=== PATIENT | female | born 1975 | race Two or more races ===

== ENCOUNTER → 2024-08-17 | Outpatient (CLI) | payer BC, SELFPAY ==
[2024-08-17 11:05] LABS: Collection Type, Urine Clean Catch
[2024-08-17 11:38] LABS: Basophils % (Auto) 1 % (0-2.5); Eosinophils # (Auto) 0.1 Thou/mm3 (0.0-0.5); Eosinophils % (Auto) 1 % (0-10); Hemoglobin 14.2 g/dL (12.0-16.0); Immature Granulocytes % (Auto) 0 % (0-0); Lymphocytes # (Auto) 1.5 Thou/mm3 (1.0-4.8); Lymphocytes % (Auto) 35 % (10-50); Mean Corpuscular HGB Conc 33.8 g/dl (31.0-37.0); Mean Corpuscular Volume 86 fL (80-100); Monocytes # (Auto) 0.3 Thou/mm3 (0.0-0.8); Monocytes % (Auto) 7 % (0-12); Neutrophils # (Auto) 2.4 Thou/mm3 (1.8-7.7); Neutrophils % (Auto) 56 % (37-80); Nucleated Red Blood Cell % 0 /100 WBC (0); Platelet Count 303 Thou/mm3 (140-440); Red Blood Count 4.89 Miln/mm3 (4.00-5.20); White Blood Count 4.2 Thou/mm3 (3.6-11.0)
[2024-08-17 11:40] LABS: Bacteria,Urine Rare; Bilirubin,Urine Negative (Negative); Blood,Urine Negative (Negative); Clarity,Urine Clear (Clear/Hazy); Color,Urine Lt-Yellow (Lt Yel-Yel); Glucose, Urine Negative (Negative); Ketones,Urine Negative (Negative); Leukocyte Esterase,Urine Positive (Negative); Nitrite,Urine Positive (Negative); Protein,Urine Negative (Neg - Trace); RBC,Urine 4 /hpf (0-3); Specific Gravity,Urine 1.013 (1.001-1.035); Squamous Epithelial Cell,Urine 2 /hpf (0-5); Urobilinogen,Urine Negative mg/dL (0.0-1.0); WBC,Urine 5 /hpf (0-5)
[2024-08-17 11:44] LABS: Culture Indicated,Urine Yes
[2024-08-17 11:55] LABS: Alanine Aminotransferase 50 U/L (10-49); Albumin, Serum 4.7 gm/dL (3.5-5.0); Albumin/Globulin Ratio 1.7 (1.2-2.2); Alkaline Phosphatase 141 U/L (46-116); Anion Gap 8 (7-16); Aspartate Amino Transferase 30 U/L (0-34); BUN/Creatinine Ratio 14 Ratio (12-20); Bilirubin,Total 0.8 mg/dL (0.3-1.2); Blood Urea Nitrogen 10 mg/dL (9-23); Calcium 9.8 mg/dL (8.3-10.6); Calcium (Corrected) 9.8 mg/dL (8.5-10.1); Carbon Dioxide 28.3 mMol/L (20.0-31.0); Cardiac Risk Estimate 2.9 RATIO (3.7-5.6); Chloride 107 mMol/L (98-107); Cholesterol 217 mg/dL (132-200); Creatinine (Component) 0.7 mg/dL (0.6-1.3); Globulin 2.7 gm/dL (2.3-3.5); Glucose 93 mg/dL (74-106); HDL Cholesterol 75 mg/dL (40-60); LDL Cholesterol,Calculated 121 mg/dL (0-130); Osmolality,Calculated 283 (275-295); Potassium 4.3 mMol/L (3.4-5.1); Sodium 143 mMol/L (136-145); Thyroid Stimulating Hormone 0.87 uIU/mL (0.55-4.78); Total Protein 7.4 gm/dL (5.7-8.2); Triglycerides 103 mg/dL (30-150); eGFR > 60 See Note
[2024-08-17 12:07] LABS: Vitamin B12 1088 pg/mL (211-911)
[2024-08-17 12:23] LABS: Vitamin D 25 Hydroxy Total 24.5 ng/mL (7.3-40.2)
[2024-08-23 07:27] LABS: Insulin* 5.4 uIU/mL (< OR = 18.4)
== END | disposition home or self-care (01) ==
LOC: COPL 10:34
PROVIDERS: PCP Family Medicine; Referring Provider Physician Assistant; Visit Provider Physician Assistant
DX: Z00.00 Encounter for general adult medical examination without abnormal findings (principal); E78.5 Hyperlipidemia, unspecified; E55.9 Vitamin D deficiency, unspecified
CPT/HCPCS: 36415; 80053; 80061; 81001; 82306; 82607; 83525; 84443; 85025; 87077; 87086; 87186

== ENCOUNTER 2024-11-29 20:45 | Emergency (ER) | payer BC, SELFPAY ==
[2024-11-29 20:45] VITALS: BMI 22.6
[2024-11-29 21:56] VITALS: BP 143/82; PULSE 119; RESP 18; TEMP 37.8; O2SAT 97
--- NOTE | 2024-11-29 22:56 | XR_ITS ---
Examination: PA lateral chest 2 views TECHNIQUE: Upright PA and lateral chest 2 views Date and time: November 29, 2024 11:22 PM INDICATIONS: Fever shortness of breath beginning 2 days ago. FINDINGS: Normal heart size Lungs are clear. The osseous structures are intact IMPRESSION: No active disease
[2024-11-29 23:04] LABS: Basophils # (Auto) 0.0 Thou/mm3 (0.0-0.2); Basophils % (Auto) 0 % (0-2.5); Eosinophils # (Auto) 0.0 Thou/mm3 (0.0-0.5); Eosinophils % (Auto) 0 % (0-10); Hematocrit 38.2 % (36.0-46.0); Hemoglobin 13.7 g/dL (12.0-16.0); Immature Granulocytes Auto 0.03 Thou/mm3 (0.00-0.00); Lactate (Lactic Acid) 1.0 mMol/L (0.4-2.0); Lymphocytes # (Auto) 0.9 Thou/mm3 (1.0-4.8); Lymphocytes % (Auto) 9 % (10-50); Mean Corpuscular HGB Conc 35.9 g/dl (31.0-37.0); Mean Corpuscular Hemoglobin 30.8 pg (25.0-35.0); Mean Corpuscular Volume 86 fL (80-100); Monocytes # (Auto) 0.8 Thou/mm3 (0.0-0.8); Monocytes % (Auto) 7 % (0-12); Neutrophils # (Auto) 8.7 Thou/mm3 (1.8-7.7); Neutrophils % (Auto) 84 % (37-80); Nucleated Red Blood Cell # 0.00 Thou/mm3 (0.00-0.00); Nucleated Red Blood Cell % 0 /100 WBC (0); Platelet Count 191 Thou/mm3 (140-440); RDW Standard Deviation 38.5 fL (36.4-46.3); Red Blood Count 4.45 Miln/mm3 (4.00-5.20); White Blood Count 10.4 Thou/mm3 (3.6-11.0)
[2024-11-29] MEDS: NAPROXEN 250 MG TABLET 500 MG PO (23:04)
[2024-11-29 23:05] LABS: Collection Type, Urine Clean Catch
--- NOTE | 2024-11-29 23:22 | EDNOTE_ITS ---
Nausea/Vomit./Diarrhea-RME/HPI General Chief complaint: Fever Stated complaint: FEVER Time Seen by Provider: 11/29/24 22:38 Arrival date/time: 11/29/24 20:45 49F with no significant PMH presents to ED with several days of fevers/chills and some non-bloody diarrhea. Possibly chest pain vs generalized body pain. P atient denies ab pain, N/V, and dysuria. Limitations: no limitations Related Data Previous Rx's ?Medication ?Instructions ?Recorded famotidine 20 mg tablet 20 mg PO QDAY #30 tabs 03/27 cefuroxime axetil 500 mg tablet 500 mg PO BID 7 days # 14 tabs 11/30/24 Allergies Allergy/AdvReac Type Severity Reaction Status Date / Time NKA* Allergy Uncoded 03/27/21 11:09 Review of Systems Review of Systems Systems Reviewed: All systems reviewed, normal except as documented Constitutional Constitutional: Reports system reviewed and no additional complaints, except as documented, Reports as per HPI, Reports body ache(s), Reports chills, Reports fever(s) and Denies headache(s) ENT Ears, Nose, Mouth, and Throat: Denies disequilibrium and Denies headache(s) Cardiovascular Cardiovascular: Reports system reviewed and no additional complaints, except as documented, Denies chest pain and Denies dyspnea Respiratory Respiratory: Reports system reviewed and no additional complaints, except as documented, Denies cough and Denies dyspnea Gastrointestinal Gastrointestinal: Reports system reviewed and no additional complaints, except as documented, Reports as per HPI, Denies abdominal pain, Reports diarrhea, Denies nausea and Denies vomiting Neurologic Neurologic: Reports system reviewed and no additional complaints, except as documented, Denies confusion, Denies disequilibrium and Denies headache(s) Psychiatric Psychiatric: Denies confusion Past Medical History Social History SMOKING STATUS: Never smoker ED Exam General Limitations: Present no limitations General appearance: Present alert and in no apparent distress Head Head exam: Present atraumatic Eye Eye exam: Present normal appearance, PERRL and EOMI ENT ENT exam: Present normal exam, normal oropharynx and mucous membranes moist Neck Neck exam: Present normal inspection, full ROM and trachea midline Chest Chest inspection: Present normal inspection and symmetric chest wall rise Respiratory Respiratory exam: Present normal lung sounds bilaterally Cardiovascular Cardiovascular exam: Present regular rate, normal rhythm and normal heart sounds Abdominal Exam Abdominal exam: Present soft and normal bowel sounds Extremities Exam Extremities exam: Present normal inspection and full ROM Back Exam Back exam: Present normal inspection and full ROM Neurological Exam Neurological exam: Present alert, oriented X3 and CN II-XII intact Psychiatric Psychiatric exam: Present normal affect and normal mood Skin Skin exam: Present warm, dry, intact and normal color Course Quality Measures none Orders Category Date Time Status Bedside COVID-19 Antigen Test NOW Care 11/29/24 22:06 Completed Bedside Influenza A&B Antigen Test NOW Care 11/29/24 22:06 Completed XR chest 2V Stat Exams 11/29/24 22:56 Completed CBC Stat Lab 11/29/24 22:51 Completed CMP [Comprehensive Metabolic Panel] Stat Lab 11/29/24 22:51 Completed Lactate (Lactic Acid) Stat Lab 11/29/24 22:51 Completed Procalcitonin Stat Lab 11/29/24 22:51 Completed Urinalysis, C/S if Indicated Stat Lab 11/29/24 22:55 Completed Urine Culture Stat Lab 11/29/24 22:55 Received Naproxen [Naprosyn] Med 11/29/24 22:38 Discontinued 500 mg PO X1 ONE cefuroxime axetiL [cefUROXime axetil] Med 11/30/24 00:15 Discontinued 500 mg PO X1 ONE Vital Signs Vital signs: Vital Signs Temperature 100.0 F 11/29/24 21:56 Pulse Rate 119 H 11/29/24 21:56 Respiratory Rate 18 11/29/24 21:56 Blood Pressure 143/82 H 11/29/24 21:56 Pulse Oximetry (%) 97 11/29/24 21:56 Oxygen Delivery Method Room Air 11/29/24 21:56 O2 at 97% on RA and WNLs Nausea/Vomiting/Diarrhea MDM Narrative MDM Narrative:: 49F with no significant PMH presents to ED with several days of fevers/chills and some non-bloody diarrhea. Possibly chest pain vs generalized body pain. Patient denies ab pain, N/V, and dysuria. Physical exam reveals clear oropharynx and lungs. Normal WOB. Patient is mildly febrile, but does not appear toxic. Swabs neg. CXR normal. No leukocytosis. Procal minimally elevated, but lactate normal. CMP cholestatic pattern, but patient denies ab pain. Also, no RUQ/epigas tric tenderness. Patient states she has some pelvic pain, though. This suggests the WBCs seen in UA is causing the symptoms, despite no dysuria. Will treat. Patient data External records reviewed:: [facility] previous records Clinical information provided by:: patient Social determinants that could affect healthcare access:: none Patient has the following chronic illnesses:: none How is presenting disease/condition affected by chronic disease/condition?: no chronic disease Evaluation data The following diagnostics were reviewed and interpreted by me:: lab results and radiology exam(s) Lab and/or radiology exams considered but not ordered:: ordered Interpretation Summary: above Medications / Prescriptions Medications / Prescriptions considered but not ordered:: ordered Medication administrations:: Medication Administration History Discontinued Medications Cefuroxime Axetil (Cefuroxime Axetil 250 Mg Tablet) 500 mg PO X1 ONE Stop: 11/30/24 00:16 Last Admin: 11/30/24 00:23 Dose: 500 mg Documented By: GM Naproxen (Naproxen 250 Mg Tablet) 500 mg PO X1 ONE Stop: 11/29/24 22:39 Last Admin: 11/29/24 23:04 Dose: 500 mg Documented By: GM above Consultations Consultation(s) initiated? (list below): No Diagnosis Nausea Differential Diagnosis: traveler's diarrhea, food poisoning, gastroenteritis, clostridium difficile infection, drug-induced nausea and vomiting, dehydration and other (UTI, biliary disease) Most likely diagnosis given after review of the tests above:: UTI Admission Indicated Admission indicated?: not indicated Admission Request Was there a request for admission?: No Disposition Plan Disposition Plan: Discharge Discharge Attestation Discharge Attestation: The patient and all family members were given an opportunity to ask questions and understood the discharge instructions. Discharge instructions specifically effects, indications for sooner follow up or return to the emergency department, and the expected course of current diagnosis. Patient condition: Stable Discharge Plan Plan Patient Disposition: HOME (Self Care) Discharge Disposition comment: Stable Prescriptions/Referrals Prescriptions/Med Rec: New cefuroxime axetil 500 mg tablet 500 mg PO BID 7 Days Qty: 14 0RF No Action famotidine 20 mg tablet 20 mg PO QDAY Qty: 30 0RF Referrals: Dona Lucas PA-C [Primary Care Provider] - In 1 week Problem List Clinical Impression: UTI (urinary tract infection) Patient/Caregiver Discharge Instructions Education Materials: ED CYSTITIS Female Adult Additional Instructions: Please follow-up with PCP within 24-48 hours and return immediately if symptoms worsen. Ibuprofen/Tylenol can be used simultaneously for greater fever/pain control. Print Language: Chinese Stand Alone Forms: Patient Portal Info Letter PA/AUTO GARAGE ATTENDANT Supervising Physician GARRET/JEROME Supervising Physician: Dr. Sifuentes
[2024-11-29 23:32] LABS: Alanine Aminotransferase 98 U/L (10-49); Albumin, Serum 4.7 gm/dL (3.5-5.0); Albumin/Globulin Ratio 1.7 (1.2-2.2); Alkaline Phosphatase 188 U/L (46-116); Anion Gap 10 (7-16); Aspartate Amino Transferase 134 U/L (0-34); BUN/Creatinine Ratio 13 Ratio (12-20); Bilirubin,Total 1.6 mg/dL (0.3-1.2); Blood Urea Nitrogen 10 mg/dL (9-23); Calcium 9.8 mg/dL (8.3-10.6); Calcium (Corrected) 9.8 mg/dL (8.5-10.1); Carbon Dioxide 23.7 mMol/L (20.0-31.0); Chloride 102 mMol/L (98-107); Creatinine (Component) 0.8 mg/dL (0.6-1.3); Estimated Creatinine Clearance 77.9 mL/min (>60); Globulin 2.8 gm/dL (2.3-3.5); Glucose 147 mg/dL (74-106); Osmolality,Calculated 273 (275-295); Potassium 4.0 mMol/L (3.4-5.1); Procalcitonin 1.45 ng/ml (0.0-0.49); Sodium 136 mMol/L (136-145); Total Protein 7.5 gm/dL (5.7-8.2); eGFR > 60 See Note
[2024-11-29 23:35] LABS: Bacteria,Urine 3+; Bilirubin,Urine Negative (Negative); Blood,Urine 2+ (Negative); Clarity,Urine Turbid (Clear/Hazy); Color,Urine Yellow (Lt Yel-Yel); Glucose, Urine Negative (Negative); Ketones,Urine Negative (Negative); Leukocyte Esterase,Urine Positive (Negative); Nitrite,Urine Positive (Negative); PH,Urine 6.5 (5.0-7.0); Protein,Urine 1+ (Neg - Trace); RBC,Urine 8 /hpf (0-3); Specific Gravity,Urine 1.012 (1.001-1.035); Squamous Epithelial Cell,Urine 2 /hpf (0-5); Urobilinogen,Urine 2.0 mg/dL (0.0-1.0); WBC,Urine 49 /hpf (0-5)
[2024-11-29 23:36] LABS: Culture Indicated,Urine Yes
== END 2024-11-30 00:48 | disposition home or self-care (01) ==
PROVIDERS: Physician Assistant; Emergency Provider Emergency Medicine; PCP Physician Assistant
DX: N39.0 Urinary tract infection, site not specified (principal); R50.9 Fever, unspecified; R06.02 Shortness of breath
CPT/HCPCS: 36415; 71046; 80053; 81001; 83605; 84145; 85025; 87077; 87086; 87186; 99283; A9270

== ENCOUNTER → 2024-12-10 | Outpatient (CLI) | payer BC, SELFPAY ==
[2024-12-10 14:40] LABS: Basophils # (Auto) 0.0 Thou/mm3 (0.0-0.2); Basophils % (Auto) 1 % (0-2.5); Eosinophils # (Auto) 0.1 Thou/mm3 (0.0-0.5); Eosinophils % (Auto) 2 % (0-10); Hematocrit 39.4 % (36.0-46.0); Hemoglobin 13.3 g/dL (12.0-16.0); Immature Granulocytes Auto 0.03 Thou/mm3 (0.00-0.00); Lymphocytes # (Auto) 2.4 Thou/mm3 (1.0-4.8); Lymphocytes % (Auto) 40 % (10-50); Mean Corpuscular HGB Conc 33.8 g/dl (31.0-37.0); Mean Corpuscular Hemoglobin 30.1 pg (25.0-35.0); Mean Corpuscular Volume 89 fL (80-100); Monocytes # (Auto) 0.3 Thou/mm3 (0.0-0.8); Monocytes % (Auto) 5 % (0-12); Neutrophils # (Auto) 3.2 Thou/mm3 (1.8-7.7); Neutrophils % (Auto) 52 % (37-80); Nucleated Red Blood Cell # 0.00 Thou/mm3 (0.00-0.00); Nucleated Red Blood Cell % 0 /100 WBC (0); Platelet Count 547 Thou/mm3 (140-440); RDW Standard Deviation 40.3 fL (36.4-46.3); Red Blood Count 4.42 Miln/mm3 (4.00-5.20); White Blood Count 6.1 Thou/mm3 (3.6-11.0)
[2024-12-10 14:47] LABS: Collection Type, Urine Clean Catch
[2024-12-10 14:58] LABS: Alanine Aminotransferase 56 U/L (10-49); Albumin, Serum 4.7 gm/dL (3.5-5.0); Albumin/Globulin Ratio 1.7 (1.2-2.2); Alkaline Phosphatase 205 U/L (46-116); Anion Gap 12 (7-16); Aspartate Amino Transferase 39 U/L (0-34); BUN/Creatinine Ratio 16 Ratio (12-20); Bilirubin,Total 0.5 mg/dL (0.3-1.2); Blood Urea Nitrogen 13 mg/dL (9-23); Calcium 9.6 mg/dL (8.3-10.6); Calcium (Corrected) 9.6 mg/dL (8.5-10.1); Carbon Dioxide 26.0 mMol/L (20.0-31.0); Chloride 104 mMol/L (98-107); Creatinine (Component) 0.8 mg/dL (0.6-1.3); Globulin 2.7 gm/dL (2.3-3.5); Glucose 94 mg/dL (74-106); Osmolality,Calculated 283 (275-295); Potassium 4.1 mMol/L (3.4-5.1); Sodium 142 mMol/L (136-145); Total Protein 7.4 gm/dL (5.7-8.2); eGFR > 60 See Note
[2024-12-10 15:24] LABS: Bilirubin,Urine Negative (Negative); Blood,Urine Negative (Negative); Clarity,Urine Clear (Clear/Hazy); Color,Urine Lt-Yellow (Lt Yel-Yel); Culture Indicated,Urine Not Indicated; Glucose, Urine Negative (Negative); Ketones,Urine Negative (Negative); Leukocyte Esterase,Urine Negative (Negative); Nitrite,Urine Negative (Negative); PH,Urine 6.0 (5.0-7.0); Protein,Urine Negative (Neg - Trace); RBC,Urine 1 /hpf (0-3); Specific Gravity,Urine 1.013 (1.001-1.035); Squamous Epithelial Cell,Urine 1 /hpf (0-5); Urobilinogen,Urine Negative mg/dL (0.0-1.0); WBC,Urine 5 /hpf (0-5)
== END | disposition home or self-care (01) ==
PROVIDERS: PCP Physician Assistant; Referring Provider Physician Assistant; Visit Provider Physician Assistant
DX: N39.0 Urinary tract infection, site not specified (principal)
CPT/HCPCS: 36415; 80053; 81001; 85025

== ENCOUNTER → 2024-12-21 | Outpatient (CLI) | payer BC, SELFPAY ==
--- NOTE | 2024-12-21 14:15 | XR_ITS ---
Examination: Screening digital mammography, bilateral Computer aided detection 3-D breast Tomosynthesis, bilateral Date and time of exam: December 21, 2024 1422 hours Compared to mammograms dating to April 18, 2015 Indication: Screening Technique: Nonmagnified MLO, CC views of the breasts to been obtained, reconstructed from 3-D Tomosynthesis images. R2 computer aided detection program utilized for evaluation of suspicious masses and/or abnormal calcifications. 3-D Tomosynthesis images obtained. Findings: The breasts are heterogeneously dense, which may obscure small masses 12 mm nodule upper outer right breast mid depth 14 mm nodule outer left breast CC view 9.4 cm from the nipple Impression: BI-RADS Category 0: Incomplete: Need additional imaging evaluation Recommend follow-up spot tomographic views 12 mm nodule upper outer right breast Recommend follow-up spot tomographic views upper outer quadrant left breast to assess focal asymmetry outer left breast on the current CC view Recommend bilateral breast sonography follow-up
== END | disposition home or self-care (01) ==
LOC: CDIM 15:45
PROVIDERS: Referring Provider Physician Assistant; Visit Provider Physician Assistant
DX: Z12.31 Encounter for screening mammogram for malignant neoplasm of breast (principal); N63.11 Unspecified lump in the right breast, upper outer quadrant; N64.89 Other specified disorders of breast
CPT/HCPCS: 77063; 77067

== ENCOUNTER → 2024-12-26 | Outpatient (CLI) | payer BC, SELFPAY ==
[2024-12-26 16:20] LABS: Collection Type, Urine Clean Catch
[2024-12-26 17:01] LABS: Bacteria,Urine 2+; Bilirubin,Urine Negative (Negative); Blood,Urine Negative (Negative); Clarity,Urine Clear (Clear/Hazy); Color,Urine Drk-Yellow (Lt Yel-Yel); Glucose, Urine Negative (Negative); Ketones,Urine 1+ (Negative); Leukocyte Esterase,Urine Positive (Negative); Nitrite,Urine Negative (Negative); PH,Urine 6.0 (5.0-7.0); Protein,Urine Negative (Neg - Trace); RBC,Urine 3 /hpf (0-3); Specific Gravity,Urine 1.016 (1.001-1.035); Squamous Epithelial Cell,Urine 3 /hpf (0-5); Urobilinogen,Urine Negative mg/dL (0.0-1.0); WBC,Urine 26 /hpf (0-5)
== END | disposition home or self-care (01) ==
LOC: SLDO 16:04
PROVIDERS: PCP Physician Assistant; Referring Provider Physician Assistant; Visit Provider Physician Assistant
DX: N39.0 Urinary tract infection, site not specified (principal)
CPT/HCPCS: 81001; 87077; 87086; 87186

== ENCOUNTER → 2025-01-14 | Outpatient (CLI) | payer BC, SELFPAY ==
[2025-01-14 09:25] LABS: Basophils # (Auto) 0.0 Thou/mm3 (0.0-0.2); Basophils % (Auto) 1 % (0-2.5); Eosinophils # (Auto) 0.1 Thou/mm3 (0.0-0.5); Eosinophils % (Auto) 1 % (0-10); Hematocrit 41.5 % (36.0-46.0); Hemoglobin 14.1 g/dL (12.0-16.0); Immature Granulocytes Auto 0.01 Thou/mm3 (0.00-0.00); Lymphocytes # (Auto) 1.7 Thou/mm3 (1.0-4.8); Lymphocytes % (Auto) 36 % (10-50); Mean Corpuscular HGB Conc 34.0 g/dl (31.0-37.0); Mean Corpuscular Hemoglobin 30.5 pg (25.0-35.0); Mean Corpuscular Volume 90 fL (80-100); Monocytes # (Auto) 0.3 Thou/mm3 (0.0-0.8); Monocytes % (Auto) 6 % (0-12); Neutrophils # (Auto) 2.7 Thou/mm3 (1.8-7.7); Neutrophils % (Auto) 57 % (37-80); Nucleated Red Blood Cell # 0.00 Thou/mm3 (0.00-0.00); Nucleated Red Blood Cell % 0 /100 WBC (0); Platelet Count 336 Thou/mm3 (140-440); RDW Standard Deviation 42.3 fL (36.4-46.3); Red Blood Count 4.63 Miln/mm3 (4.00-5.20); White Blood Count 4.8 Thou/mm3 (3.6-11.0)
[2025-01-14 09:55] LABS: Alanine Aminotransferase 21 U/L (10-49); Albumin, Serum 4.6 gm/dL (3.5-5.0); Albumin/Globulin Ratio 1.8 (1.2-2.2); Alkaline Phosphatase 114 U/L (46-116); Anion Gap 12 (7-16); Aspartate Amino Transferase 27 U/L (0-34); BUN/Creatinine Ratio 17 Ratio (12-20); Bilirubin,Total 0.7 mg/dL (0.3-1.2); Blood Urea Nitrogen 12 mg/dL (9-23); Calcium 10.3 mg/dL (8.3-10.6); Calcium (Corrected) 10.3 mg/dL (8.5-10.1); Carbon Dioxide 26.6 mMol/L (20.0-31.0); Cardiac Risk Estimate 3.5 RATIO (3.7-5.6); Chloride 105 mMol/L (98-107); Cholesterol 202 mg/dL (132-200); Creatinine (Component) 0.7 mg/dL (0.6-1.3); Globulin 2.5 gm/dL (2.3-3.5); Glucose 91 mg/dL (74-106); HDL Cholesterol 58 mg/dL (40-60); LDL Cholesterol,Calculated 124 mg/dL (0-130); Osmolality,Calculated 286 (275-295); Potassium 4.7 mMol/L (3.4-5.1); Sodium 144 mMol/L (136-145); Total Protein 7.1 gm/dL (5.7-8.2); Triglycerides 98 mg/dL (30-150); eGFR > 60 See Note
[2025-01-14 10:11] LABS: Collection Type, Urine Clean Catch
[2025-01-14 11:02] LABS: Bacteria,Urine Rare; Bilirubin,Urine Negative (Negative); Blood,Urine Negative (Negative); Clarity,Urine Clear (Clear/Hazy); Color,Urine Lt-Yellow (Lt Yel-Yel); Culture Indicated,Urine Not Indicated; Glucose, Urine Negative (Negative); Ketones,Urine Negative (Negative); Leukocyte Esterase,Urine Positive (Negative); Nitrite,Urine Negative (Negative); PH,Urine 7.0 (5.0-7.0); Protein,Urine Negative (Neg - Trace); RBC,Urine < 1 /hpf (0-3); Specific Gravity,Urine 1.012 (1.001-1.035); Squamous Epithelial Cell,Urine 3 /hpf (0-5); Urobilinogen,Urine Negative mg/dL (0.0-1.0); WBC,Urine 3 /hpf (0-5)
[2025-01-14 12:56] LABS: Path Review Blood Smear Sent to Pathologist
== END | disposition home or self-care (01) ==
PROVIDERS: PCP Family Medicine; Referring Provider Physician Assistant; Visit Provider Physician Assistant
DX: E78.5 Hyperlipidemia, unspecified (principal); R94.5 Abnormal results of liver function studies; D47.3 Essential (hemorrhagic) thrombocythemia; N39.0 Urinary tract infection, site not specified
CPT/HCPCS: 36415; 80053; 80061; 81001; 85025

== ENCOUNTER → 2025-02-04 | Outpatient (CLI) | payer BC, SELFPAY ==
--- NOTE | 2025-02-04 07:30 | XR_ITS ---
Examination: Breast ultrasound complete, bilateral Date and time of exam: February 04, 2025, 0755 hours INDICATIONS: Mammogram December 19, 2024 12 mm nodule upper outer right breast, focal asymmetry outer left breast on the CC view Technique: Real-time grayscale ultrasonographic imaging bilateral breasts, including all 4 quadrants as well as nipple retroareolar and axillary regions. Findings: Sonographic images right breast 10:00 nodule indistinct margins 14 x 9 mm IMPRESSION: BI-RADS Category 4: Suspicious for malignancy ultrasound-guided biopsy is needed to exclude breast carcinoma
--- NOTE | 2025-02-04 08:30 | XR_ITS ---
Examination: Diagnostic digital mammography, bilateral Computer aided detection 3-D breast Tomosynthesis, bilateral Date and time of exam: February 04, 819 hours INDICATIONS: Mammogram December 21, 2024 12 mm nodule upper outer right breast 14 mm nodule left breast CC view Technique: Nonmagnified MLO, CC views of the breasts to been obtained, reconstructed from 3-D Tomosynthesis images. R2 computer aided detection program utilized for evaluation of suspicious masses and/or abnormal calcifications. 3-D Tomosynthesis images obtained. Findings: The breasts are heterogeneously dense, which may obscure small masses Nodule in the 10:00 position right breast indistinct margins, likely corresponding to 10:00 nodule right breast on the right breast sonogram today No suspicious left breast nodule noted Impression: BI-RADS Category 4: Suspicious for malignancy Suspicious nodule 10:00 position right breast, best demonstrated on right breast sonogram today, biopsy is needed to exclude breast carcinoma, this nodule is amenable to ultrasound-guided breast biopsy for diagnosis.
== END | disposition home or self-care (01) ==
LOC: CDIM 07:39
PROVIDERS: Referring Provider Physician Assistant; Visit Provider Physician Assistant
DX: R92.343 Mammographic extreme density, bilateral breasts (principal); N63.11 Unspecified lump in the right breast, upper outer quadrant
CPT/HCPCS: 76641; 77062; 77066; G0279

== ENCOUNTER 2025-03-10 20:12 | Emergency (ER) | payer BC, SELFPAY ==
--- NOTE | 2025-03-10 20:27 | PD.EDRECHK ---
ED Recheck Abnl Lab Rx-RME/HPI General Chief Complaint: General Adult/Misc Complain Stated Complaint: BLOOD PRESSURE HIGH, NOT FEELING GOOD Time Seen by Provider: 03/10/25 20:32 Arrival date/time: 03/10/25 20:12 RME / HPI RME / HPI narrative: See [facility] for Dr. Bustillo's HPI documentation. Related Data Previous Rx's ?Medication ?Instructions ?Recorded famotidine 20 mg tablet 20 mg PO QDAY #30 tabs 03/27/21 alprazolam 0.25 mg tablet (Xanax) 0.25 mg PO BID PRN anxiety #10 tabs 03/10/25 cefdinir 300 mg capsule 300 mg PO BID #14 caps 03/10/25 clonidine HCl 0.1 mg tablet 0.1 mg PO BID #60 tabs 03/10/25 Allergies Allergy/AdvReac Type Severity Reaction Status Date / Time NKA* Allergy Uncoded 03/27/21 11:09 Review of Systems Review of Systems Systems Reviewed: All systems reviewed, normal except as documented Past Medical History Social History SMOKING STATUS: Never smoker ED Exam Narrative Physical exam: See [facility] for Dr. Bustillo's physical exam documentation. Course Course Course Narrative: CXR is ordered for determining the etiology of chest pain. Quality Measures none Orders Category Date Time Status Bedside COVID-19 Antigen Test NOW Care 03/10/25 20:33 Completed EKG (ED ONLY) *Do not use* NOW Care 03/10/25 20:34 Completed Saline [Insert IV] NOW Care 03/10/25 20:[address] head/brain wo con Stat Exams 03/10/25 20:34 Completed EKG (ED Only) Stat Exams 03/10/25 20:34 Draft XR chest 1V portable Stat Exams 03/10/25 20:34 Completed BNP [B-Type Natriuretic Peptide] Stat Lab 03/10/25 21:24 Completed Bilirubin,Direct Stat Lab 03/10/25 21:24 Completed CBC Stat Lab 03/10/25 21:24 Completed CMP [Comprehensive Metabolic Panel] Stat Lab 03/10/25 21:24 Completed CRP [C-Reactive Protein] Stat Lab 03/10/25 21:24 Completed ESR [Sed Rate (ESR)] Stat Lab 03/10/25 21:24 Completed HCG,Qualitative Serum Stat Lab 03/10/25 21:24 Completed Influenza A & B Rapid Panel Stat Lab 03/10/25 21:30 Completed Lipase Stat Lab 03/10/25 21:24 Completed Magnesium Stat Lab 03/10/25 21:24 Completed Procalcitonin Stat Lab 03/10/25 21:24 Completed TSH [Thyroid Stimulating Hormone] Stat Lab 03/10/25 21:24 Completed Troponin I Stat Lab 03/10/25 21:24 Completed UA, C/S IF [Urinalysis, C/S if Indicated] Stat Lab 03/10/25 21:07 Completed Urine Culture Stat Lab 03/10/25 21:07 Received ALPRazoLAM [Xanax] Med 03/10/25 21:58 Discontinued 0.5 mg PO X1 ONE Ondansetron Inj [Zofran Inj] Med 03/10/25 20:33 Discontinued 4 mg IVP X1 ONE Ringers Lactated 1000 ml [Lactated Ringers] 1,000 ml Med 03/10/25 23:01 Discontinued IV 1,000 mls/hr Sodium Chloride 0.9% 1000 ml [Ns] 1,000 ml Med 03/10/25 20:33 Discontinued IV 999 mls/hr cefTRIAXone/D5w 1gm IV premix [Rocephin/D5w 1gm IV Med 03/10/25 22:02 Discontinued premix] 1 gm in 50 ml IV X1 cloNIDine HCL [Catapres] Med 03/10/25 20:33 Discontinued 0.3 mg PO X1 ONE Vital Signs Vital signs: Vital Signs Temperature 97.9 F 03/10/25 20:32 Pulse Rate 73 03/10/25 20:32 Respiratory Rate 18 03/10/25 20:32 Blood Pressure 184/114 H 03/10/25 20:32 Pulse Oximetry (%) 97 03/10/25 20:32 Oxygen Delivery Method Room Air 03/10/25 20:32 Recheck / Abnormal Lab / Rx MDM Narrative MDM Narrative:: This section includes all my notes and documentations, including HPI, PE, and ED course. Jacques Bustillo MD HPI: 49yo female here with high blood pressure at home > 200 all day today. Reports headache and neck pain and chest pain and back pain. No speech or visual impairment. No loss of power in arms or legs. No fever or chills. No other complaints. ROS: All negative except as documented in HPI. Physical Exam: General:? Alert and oriented.? Appearance of malaise noted. High BP noted. Eyes:? Conjunctivae and lids clear.? EOMI.? PERRL. ENT:? No nasal congestion. Neck:? Supple.? No carotid bruit. No JVD. Heart:? RRR. Lungs:? No respiratory distress.? Good air movement.? No rhonchi, wheezing, rales.? Chest:? No tenderness. Abdomen:? Soft and nontender.? Normal bowel sounds.? No distension.? No rebound or guarding.? Back:? No tenderness.? Skin:? Warm and dry.? Neuro:? Alert and oriented X 3.? Cranial Nerves II-XII grossly intact.? No peripheral motor deficits. I reviewed all diagnostic test results. My interpretation of the EKG is sinus rhythm with nonspecific ST-T changes. My interpretation of the chest x-ray is unremarkable. My review of the CT head report is unremarkable. Blood tests are unremarkable. UA remarkable for positive leukocyte esterase, 6 WBCs, and 1+ bacteria. COVID/Influenza negative. At this point, diagnoses include: Hypertension UTI Treatment here included: IV fluid Xanax 0.5 mg PO Clonidine 0.3 mg Rocephin 1 g IV Zofran 4 mg IV Significant improvement noted. Recommend outpatient management. Based on my best medical judgment, made decision no further evaluation or treatment indicated at this time. Patient understands and agrees to the discharge instructions customized and printed, see below. Discharge instructions from Dr. Bustillo: 1. After extensive evaluation, there is no life-threatening condition. Such as stroke or brain tumor or heart attack. 2. Take Clonidine 0.1 mg pill(s) every 12 hours as needed based on SBP (higher number of BP). SBP > 140, take one pill. SBP > 160, take two pills. SBP > 180, take three pills. SBP > 200, take four pills. 3. Take Xanax as needed for stress. Avoid more than 2-3 times per week to prevent dependence. 4. Take cefdinir for urine infection. For good hydration, increase oral fluid and maintain clear urine. If dark or yellow, increase oral fluid. 5. See a private doctor on 04/02 for recheck. Ask to review all test results and official radiology reports, to make sure you receive all necessary follow-ups and monitoring. 6. Seek immediate medical care with worsening or with any concerns. Jacques Bustillo MD Patient data External records reviewed:: [facility] previous records (Per chart review, patient was seen here on 11/29/24 for UTI.) Clinical information provided by:: patient Social determinants that could affect healthcare access:: none Patient has the following chronic illnesses:: none How is presenting disease/condition affected by chronic disease/condition?: no chronic disease Evaluation data The following diagnostics were reviewed and interpreted by me:: lab results, radiology exam(s) and EKG tracing(s) (My interpretation of the EKG is: Sinus rhythm (71 bpm) with nonspecific ST-T changes. Jacques Bustillo MD) Lab and/or radiology exams considered but not ordered:: none Interpretation Summary: I reviewed all diagnostic test results. My interpretation of the EKG is sinus rhythm with nonspecific ST-T changes. My interpretation of the chest x-ray is unremarkable. My review of the CT head report is unremarkable. Blood tests are unremarkable. UA remarkable for positive leukocyte esterase, 6 WBCs, and 1+ bacteria. COVID/Influenza negative. Medications / Prescriptions Medications or Prescriptions considered but not ordered:: none Medication administrations:: Medication Administration History Discontinued Medications Alprazolam (Alprazolam 0.25 Mg Tablet) 0.5 mg PO X1 ONE Stop: 03/10/25 21:59 Last Admin: 03/10/25 22:04 Dose: 0.5 mg Documented By: JEFFREY Clonidine (Clonidine Hcl 0.1 Mg Tablet) 0.3 mg PO X1 ONE Stop: 03/10/25 20:34 Last Admin: 03/10/25 21:26 Dose: 0.3 mg Documented By: JEFFREY Sodium Chloride (Ns) 1,000 mls @ 999 mls/hr IV .Q1H1M ONE Stop: 03/10/25 21:33 Last Infusion: 03/10/25 22:23 Dose: Infused Documented By: Admin: 03/10/25 21:27 Dose: 999 mls/hr Documented By: JEFFREY Ceftriaxone Sodium/Dextrose (Rocephin/D5w 1gm Iv Premix) 1 gm in 50 mls @ 100 mls/hr IV X1 ONE Stop: 03/10/25 22:31 Last Infusion: 03/10/25 22:35 Dose: Infused Documented By: Admin: 03/10/25 22:08 Dose: 100 mls/hr Documented By: JEFFREY Lactated Ringer's (Lactated Ringers) 1,000 mls @ 1,000 mls/hr IV .Q1H ONE Stop: 03/11/25 00:00 Last Admin: 03/10/25 23:16 Dose: 1,000 mls/hr Documented By: JEFFREY Ondansetron HCl (Ondansetron Inj 2 Mg/Ml Inj 2 Ml) 4 mg IVP X1 ONE; Protocol Stop: 03/10/25 20:34 Last Admin: 03/10/25 21:26 Dose: 4 mg Documented By: JEFFREY IV fluid Xanax 0.5mg PO Clonidine 0.3mg Rocephin 1g IV Zofran 4mg IV Consultations Consultation(s) initiated? (list below): No Diagnosis Recheck Differential Diagnosis: other (CVA, brain tumor, [place], dehydration, UTI, pneumonia, electrolyte normalities) Most likely diagnosis given after review of the tests above:: Hypertension UTI Admission Indicated Admission indicated?: not indicated Explain why admission is indicated or not indicated:: With significant improvement and no condition needing emergent intervention, there was no indication for admission. Admission Request Was there a request for admission?: No Disposition Plan Disposition Plan: Discharge Discharge Attestation Discharge Attestation: The patient and all family members were given an opportunity to ask questions and understood the discharge instructions. Discharge instructions specifically effects, indications for sooner follow up or return to the emergency department, and the expected course of current diagnosis. Patient condition: Stable Discharge Plan Plan Patient Disposition: HOME (Self Care) Prescriptions/Referrals Prescriptions/Med Rec: New clonidine HCl 0.1 mg tablet 0.1 mg PO BID Qty: 60 0RF alprazolam [Xanax] 0.25 mg tablet 0.25 mg PO BID PRN (Reason: anxiety) Qty: 10 0RF cefdinir 300 mg capsule 300 mg PO BID Qty: 14 0RF No Action famotidine 20 mg tablet 20 mg PO QDAY Qty: 30 0RF Referrals: Dona Lucas PA-C [Primary Care Provider] - In 1 week Problem List Clinical Impression: Hypertension, UTI (urinary tract infection) Patient/Caregiver Discharge Instructions Discharge Activity: activity as tolerated Education Materials: ED Hypertension, New (Begin Treatment), ED CYSTITIS Female Adult Additional Instructions: Discharge instructions from Dr. Bustillo: 1. After extensive evaluation, there is no life-threatening condition. Such as stroke or brain tumor or heart attack. 2. Take Clonidine 0.1 mg pill(s) every 12 hours as needed based on SBP (higher number of BP). SBP > 140, take one pill. SBP > 160, take two pills. SBP > 180, take three pills. SBP > 200, take four pills. 3. Take Xanax as needed for stress. Avoid more than 2-3 times per week to prevent dependence. 4. Take cefdinir for urine infection. For good hydration, increase oral fluid and maintain clear urine. If dark or yellow, increase oral fluid. 5. See a private doctor on 04/02 for recheck. Ask to review all test results and official radiology reports, to make sure you receive all necessary follow-ups and monitoring. 6. Seek immediate medical care with worsening or with any concerns. Instrucciones de toby del Dr. Bustillo: 1. Tras winsome evaluaci?n exhaustiva, no se detecta ninguna afecci?n que ponga en riesgo la galo, ambika un derrame cerebral, un tumor cerebral o un infarto. 2. Covel winsome o m?s pastillas de clonidina de 0.1 mg cada 12 horas seg?n sea necesario, en funci?n de la presi?n arterial sist?lica (PAS). PAS > 140, tome winsome pastilla. PAS > 160, tome dos pastillas. PAS > 180, tome adithya pastillas. PAS > 200, tome cuatro pastillas. 3. Covel Xanax seg?n sea necesario para el estr?s. Evite tomarlo m?s de 2 o 3 veces por semana para prevenir la dependencia. 4. Covel cefdinir para la infecci?n urinaria. Para winsome buena hidrataci?n, aumente la ingesta de l?quidos y mantenga la orina tim. Si la orina es oscura o amarilla, aumente la ingesta de l?quidos. 5. Consulte a gómez m?dico particular el 02/04 para winsome revisi?n. Solicite revisar todos los resultados de las pruebas y los informes radiol?gicos oficiales para asegurarse de recibir todos los seguimientos y controles necesarios. 6. Busque atenci?n m?dica inmediata si gómez estado empeora o si tiene alguna inquietud. Print Language: Upper Sorbian Stand Alone Forms: Christine Award Info., Patient Portal Info Letter
[2025-03-10 20:32] VITALS: BP 184/114; PULSE 73; RESP 18; TEMP 36.6; O2SAT 97
--- NOTE | 2025-03-10 20:34 | XR_ITS ---
Examination: CT brain head without contrast. 2-D sagittal coronal reconstructions Date and time of exam: March 10, 2025 1912 hours INDICATIONS: Headache with high blood pressure beginning 2 days ago CTDI: vol (mGy): 43.71 DLP: (mGycm): 891 Technique: Multiple CT axial sections of the brain have been obtained, 5 mm slice thickness. Contrast has not been administered. 2-D sagittal, coronal reconstructions have been obtained Low dose protocols were performed. One or more of the following dose reduction techniques were used; automated exposure control, adjustment of the mA and/or KV according to patient size, use of iterative reconstruction technique. Findings: No significant ventricular enlargement. Intra-axial or extra-axial hemorrhage density is not seen. No mass effect or midline shift Basal cisterns are not remarkable. Fourth ventricle is midline. Cranial vault intact. Impression: Negative for acute hemorrhage, mass effect or midline shift
--- NOTE | 2025-03-10 20:34 | XR_ITS ---
EXAMINATION: PA chest single view TECHNIQUE: Upright PA chest single view Date and time: March 10, 2025, 2055 hours, comparison November 29, 2024 INDICATIONS: High blood pressure today with shortness of breath. FINDINGS: Normal heart size Lungs are clear. The osseous structures are intact IMPRESSION: No active disease
--- NOTE | 2025-03-10 20:34 | EKG_ITS ---
[facility] Test Date: 2025-03-10 Pat Name: MAGDA WANG Department: Room: - Gender: Female [employer]: : [id number] Requested By: Jacques Howard Order Number: [id number] Reading MD: Jacques Howard Measurements Intervals [place] Rate: 71 P: 74 CO: 171 QRS: 37 QRSD: 84 T: 47 QT: 375 QTc: 410 Interpretive Statements SINUS RHYTHM Compared to ECG 03/27/2021 11:53:03 No significant changes /[id number]
[2025-03-10 21:20] LABS: Collection Type, Urine Clean Catch
[2025-03-10 21:26] VITALS: BP 171/111; PULSE 87
[2025-03-10 21:26] LABS: Bacteria,Urine 1+; Bilirubin,Urine Negative (Negative); Blood,Urine Negative (Negative); Clarity,Urine Clear (Clear/Hazy); Color,Urine Colorless (Lt Yel-Yel); Glucose, Urine Negative (Negative); Ketones,Urine Negative (Negative); Leukocyte Esterase,Urine Positive (Negative); Nitrite,Urine Negative (Negative); PH,Urine 6.5 (5.0-7.0); Protein,Urine Negative (Neg - Trace); RBC,Urine 1 /hpf (0-3); Specific Gravity,Urine 1.004 (1.001-1.035); Squamous Epithelial Cell,Urine 3 /hpf (0-5); Urobilinogen,Urine Negative mg/dL (0.0-1.0); WBC,Urine 6 /hpf (0-5)
[2025-03-10] MEDS: ONDANSETRON INJ 2 MG/ML INJ 2 ML 4 MG IVP (21:26)
[2025-03-10] MEDS: SODIUM CHLORIDE 0.9% 1000 ML 1,000 ML 999 ML IV (21:27)
[2025-03-10 21:28] LABS: Culture Indicated,Urine Yes
[2025-03-10 21:37] LABS: Basophils # (Auto) 0.0 Thou/mm3 (0.0-0.2); Basophils % (Auto) 1 % (0-2.5); Eosinophils # (Auto) 0.1 Thou/mm3 (0.0-0.5); Eosinophils % (Auto) 2 % (0-10); Hematocrit 40.2 % (36.0-46.0); Hemoglobin 13.9 g/dL (12.0-16.0); Immature Granulocytes Auto 0.01 Thou/mm3 (0.00-0.00); Lymphocytes # (Auto) 2.4 Thou/mm3 (1.0-4.8); Lymphocytes % (Auto) 44 % (10-50); Mean Corpuscular HGB Conc 34.6 g/dl (31.0-37.0); Mean Corpuscular Hemoglobin 30.4 pg (25.0-35.0); Mean Corpuscular Volume 88 fL (80-100); Monocytes # (Auto) 0.4 Thou/mm3 (0.0-0.8); Monocytes % (Auto) 7 % (0-12); Neutrophils # (Auto) 2.5 Thou/mm3 (1.8-7.7); Neutrophils % (Auto) 47 % (37-80); Nucleated Red Blood Cell # 0.00 Thou/mm3 (0.00-0.00); Nucleated Red Blood Cell % 0 /100 WBC (0); Platelet Count 304 Thou/mm3 (140-440); RDW Standard Deviation 41.1 fL (36.4-46.3); Red Blood Count 4.57 Miln/mm3 (4.00-5.20); White Blood Count 5.4 Thou/mm3 (3.6-11.0)
[2025-03-10 21:44] LABS: Sed Rate (ESR) 12 mm/hr (0-30)
[2025-03-10 21:49] VITALS: BP 177/113; PULSE 77; RESP 16; TEMP 36.9; O2SAT 100
[2025-03-10 21:49] LABS: HCG,Qualitative Serum Negative
[2025-03-10 21:51] LABS: Influenza A Ag Negative; Influenza B Ag Negative
[2025-03-10 22:03] LABS: B-Type Natriuretic Peptide < 20 pg/mL (0-100)
[2025-03-10 22:06] LABS: Alanine Aminotransferase 19 U/L (10-49); Albumin, Serum 4.9 gm/dL (3.5-5.0); Albumin/Globulin Ratio 2.0 (1.2-2.2); Alkaline Phosphatase 126 U/L (46-116); Anion Gap 10 (7-16); Aspartate Amino Transferase 22 U/L (0-34); BUN/Creatinine Ratio 16 Ratio (12-20); Bilirubin,Direct 0.2 mg/dL (0.0-0.3); Bilirubin,Total 0.6 mg/dL (0.3-1.2); Blood Urea Nitrogen 14 mg/dL (9-23); Calcium 9.9 mg/dL (8.3-10.6); Calcium (Corrected) 9.9 mg/dL (8.5-10.1); Carbon Dioxide 25.0 mMol/L (20.0-31.0); Chloride 106 mMol/L (98-107); Creatinine (Component) 0.9 mg/dL (0.6-1.3); Globulin 2.4 gm/dL (2.3-3.5); Glucose 104 mg/dL (74-106); Lipase 27 U/L (12-53); Magnesium 1.9 mg/dL (1.6-2.6); Osmolality,Calculated 281 (275-295); Potassium 3.7 mMol/L (3.4-5.1); Procalcitonin < 0.04 ng/ml (0.0-0.49); Sodium 141 mMol/L (136-145); Thyroid Stimulating Hormone 1.62 uIU/mL (0.55-4.78); Total Protein 7.3 gm/dL (5.7-8.2); Troponin I < 0.002 ng/mL (0.0-0.045); eGFR > 60 See Note
[2025-03-10] MEDS: cefTRIAXone/D5w 1gm IV premix 1 GM/50 ML BAG IV (22:08)
[2025-03-10 22:09] LABS: C-Reactive Protein < 0.5 mg/dL (0.0-0.9)
[2025-03-10 22:57] VITALS: BP 94/61; PULSE 68; RESP 13; TEMP 36.6; O2SAT 95
[2025-03-10] MEDS: RINGERS LACTATED 1000 ML 1,000 ML IV (23:16)
[2025-03-10 23:39] VITALS: BP 92/57; PULSE 65; RESP 12; TEMP 36.9; O2SAT 100
== END 2025-03-10 23:40 | disposition home or self-care (01) ==
PROVIDERS: Emergency Provider Emergency Medicine; PCP Physician Assistant
DX: I10 Essential (primary) hypertension (principal); N39.0 Urinary tract infection, site not specified; R06.02 Shortness of breath; R51.9 Headache, unspecified
CPT/HCPCS: 36415; 70450; 71045; 80053; 81001; 82248; 83690; 83735; 83880; 84145; 84443; 84484; 84703; 85025; 85652; 86140; 87086; 87502; 87635; 93005; 96361; 96365; 96375; 99284; J0696; J2405; J7030; J7120; A9270

== ENCOUNTER → 2025-03-22 | Outpatient (CLI) | payer BC, SELFPAY ==
[2025-03-22 14:13] LABS: Collection Type, Urine Clean Catch
[2025-03-22 16:28] LABS: Bilirubin,Urine Negative (Negative); Blood,Urine Negative (Negative); Clarity,Urine Clear (Clear/Hazy); Color,Urine Lt-Yellow (Lt Yel-Yel); Culture Indicated,Urine Not Indicated; Glucose, Urine Negative (Negative); Ketones,Urine Negative (Negative); Leukocyte Esterase,Urine Negative (Negative); Nitrite,Urine Negative (Negative); PH,Urine 6.0 (5.0-7.0); Protein,Urine Negative (Neg - Trace); RBC,Urine 1 /hpf (0-3); Specific Gravity,Urine 1.015 (1.001-1.035); Squamous Epithelial Cell,Urine 1 /hpf (0-5); Urobilinogen,Urine Negative mg/dL (0.0-1.0); WBC,Urine 1 /hpf (0-5)
== END | disposition home or self-care (01) ==
LOC: SLDO 14:07
PROVIDERS: PCP Family Medicine; Referring Provider Physician Assistant; Visit Provider Physician Assistant
DX: N39.0 Urinary tract infection, site not specified (principal)
CPT/HCPCS: 81001

== ENCOUNTER → 2025-04-30 | Outpatient (BNVA) | payer BC, SELFPAY | END | disposition home or self-care (01) | PROVIDERS: PCP Physician Assistant; Referring Provider Physician Assistant; Visit Provider Urology | DX: N39.0 Urinary tract infection, site not specified (principal); N89.9 Noninflammatory disorder of vagina, unspecified; I10 Essential (primary) hypertension | CPT/HCPCS: 81003; 99212; G0463 ==